=== PATIENT | female | born 1965 | race Caucasian/White ===

== ENCOUNTER → 2024-11-04 10:01 | Outpatient (REF) | payer BC, SELFPAY ==
[2024-11-04 10:54] LABS: % Basophils 0.7 % (0-2); % Eosinophils 7.5 % (0-6); % Immature Granulocytes 0.2 % (0-0.5); % Monocytes 4.7 % (1.7-9.3); % Neutrophils 52.9 % (42.2-75.2); Absolute Basophils 0.1 10^3/uL (0-0.2); Absolute Eosinophils 0.6 10^3/uL (0-0.7); Absolute Lymphocytes 2.9 10^3/uL (1.2-3.4); Absolute Monocytes 0.4 10^3/uL (0.1-0.6); Absolute Neutrophils 4.5 10^3/uL (1.4-6.5); Hematocrit 47.5 % (37.0-47.0); Hemoglobin 15.9 g/dL (12.0-16.0); Mean Corp Hgb Conc. 33.5 g/dL (33.0-37.0); Mean Corpuscular Hgb 31.3 pg (27.0-31.0); Mean Corpuscular Volume 93.5 fL (81.0-99.0); Mean Platelet Volume 10.8 fL (7.4-10.4); Nucleated Red Blood Cells % 0 %; Platelet Count 277 10^3/uL (130-400); Red Blood Cell Count 5.08 10^6/uL (4.20-5.40); Red Cell Dist. Width 12.9 % (11.5-14.5); White Blood Cell Count 8.5 10^3/uL (4.8-10.8)
[2024-11-04 11:28] LABS: Glycohemoglobin (HgbA1c) 5.3 % (4.0-5.6)
[2024-11-04 11:45] LABS: ALT (SGPT) 22 U/L (0-35); AST (SGOT) 32 U/L (14-36); Albumin 4.6 g/dl (3.5-5.0); Alkaline Phosphatase 49 U/L (38-126); Blood Urea Nitrogen 12 mg/dl (7-17); Calcium 9.9 mg/dl (8.4-10.2); Carbon Dioxide 28 mmol/L (22-30); Chloride 107 mmol/L (98-107); Glucose 82 mg/dl (70-99); HDL Cholesterol 43 mg/dl; LDL Cholesterol, Calculated 47 mg/dl; Sodium 143 mmol/L (135-145); Total Bilirubin 0.6 mg/dl (0.2-1.3); Total Cholesterol 118 mg/dl (50-199); Total Protein 7.1 g/dl (6.3-8.2); Triglyceride 144 mg/dl (10-149); Very Low Density Lipoprotein 28 mg/dl (0-30); eGFR > 60.00
[2024-11-04 12:15] LABS: TSH 0.98 uIU/ml (0.47-4.68)
== END ==
LOC: REG 10:01
PROVIDERS: ATTENDING PHYSICIAN Physician Assistant Medical
DX: R63.4 Abnormal weight loss (principal); F17.210 Nicotine dependence, cigarettes, uncomplicated
CPT/HCPCS: 36415; 80053; 80061; 83036; 84443; 85025

== ENCOUNTER → 2024-11-25 10:25 | Outpatient (REF) | payer BC, SELFPAY ==
[2024-11-25 12:13] LABS: % Basophils 0.6 % (0-2); % Eosinophils 2.1 % (0-6); % Immature Granulocytes 0.2 % (0-0.5); % Lymphocytes 38.3 % (20.5-51.1); % Monocytes 5.1 % (1.7-9.3); % Neutrophils 53.7 % (42.2-75.2); Absolute Basophils 0.1 10^3/uL (0-0.2); Absolute Eosinophils 0.2 10^3/uL (0-0.7); Absolute Lymphocytes 3.4 10^3/uL (1.2-3.4); Absolute Monocytes 0.5 10^3/uL (0.1-0.6); Absolute Neutrophils 4.8 10^3/uL (1.4-6.5); Hematocrit 43.9 % (37.0-47.0); Hemoglobin 14.9 g/dL (12.0-16.0); Mean Corp Hgb Conc. 33.9 g/dL (33.0-37.0); Mean Corpuscular Hgb 31.6 pg (27.0-31.0); Mean Corpuscular Volume 93.2 fL (81.0-99.0); Mean Platelet Volume 10.7 fL (7.4-10.4); Nucleated Red Blood Cells % 0 %; Platelet Count 292 10^3/uL (130-400); Red Blood Cell Count 4.71 10^6/uL (4.20-5.40); Red Cell Dist. Width 12.9 % (11.5-14.5); White Blood Cell Count 8.9 10^3/uL (4.8-10.8)
== END ==
LOC: REG 10:25
PROVIDERS: ATTENDING PHYSICIAN Physician Assistant Medical
DX: R71.8 Other abnormality of red blood cells (principal)
CPT/HCPCS: 36415; 85025

== ENCOUNTER 2025-06-01 09:02 | Emergency (ER) | payer SELFPAY ==
[2025-06-01 09:05] VITALS: BP 127/77
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
[2025-06-01 11:06] VITALS: BMI 24.2
[2025-06-01] MEDS: TYLENOL 650 MG PO (11:07)
[2025-06-01 13:39] VITALS: BP 124/82
== END 2025-06-01 13:41 | disposition home or self-care (01) ==
LOC: EMR 09:02
PROVIDERS: EMERGENCY PHYSICIAN Student in an Organized Health Care Education/Training Program; FAMILY PHYSICIAN Physician Assistant Medical
DX: S93.401A Sprain of unspecified ligament of right ankle, initial encounter (principal); S90.31XA Contusion of right foot, initial encounter; E78.00 Pure hypercholesterolemia, unspecified; J45.909 Unspecified asthma, uncomplicated; F17.200 Nicotine dependence, unspecified, uncomplicated; V49.40XA Driver injured in collision with unspecified motor vehicles in traffic accident, initial encounter; Y92.410 Unspecified street and highway as the place of occurrence of the external cause; W19.XXXA Unspecified fall, initial encounter
CPT/HCPCS: 99284; 70450; 72170; 73630

== ENCOUNTER 2025-06-06 11:08 | Emergency (ER) | payer BC, SELFPAY ==
[2025-06-06 11:09] VITALS: BP 141/105
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
== END 2025-06-06 13:21 | disposition home or self-care (01) ==
LOC: EMR 11:08
PROVIDERS: EMERGENCY PHYSICIAN Emergency Medicine; FAMILY PHYSICIAN Physician Assistant Medical
DX: S30.0XXA Contusion of lower back and pelvis, initial encounter (principal); W01.198A Fall on same level from slipping, tripping and stumbling with subsequent striking against other object, initial encounter; R03.0 Elevated blood-pressure reading, without diagnosis of hypertension; E78.00 Pure hypercholesterolemia, unspecified; J45.909 Unspecified asthma, uncomplicated; F31.9 Bipolar disorder, unspecified; F17.200 Nicotine dependence, unspecified, uncomplicated
CPT/HCPCS: 99283; 72110; 72220

== ENCOUNTER → 2025-06-20 10:32 | Outpatient (REF) | payer BC, SELFPAY ==
[2025-06-20 12:40] LABS: HDL Cholesterol 51 mg/dl; LDL Cholesterol, Calculated 52 mg/dl; Very Low Density Lipoprotein 21 mg/dl (0-30)
== END ==
LOC: REG 10:32
PROVIDERS: ATTENDING PHYSICIAN Physician Assistant Medical
DX: R63.4 Abnormal weight loss (principal); E78.2 Mixed hyperlipidemia
CPT/HCPCS: 36415; 80061

== ENCOUNTER → 2025-06-26 15:02 | Outpatient (REF) | payer BC, SELFPAY | LOC: MRI 3T 15:02 | PROVIDERS: ATTENDING PHYSICIAN Physician Assistant Medical | DX: R63.4 Abnormal weight loss (principal); R41.0 Disorientation, unspecified; V89.2XXD Person injured in unspecified motor-vehicle accident, traffic, subsequent encounter; M53.3 Sacrococcygeal disorders, not elsewhere classified | CPT/HCPCS: 70553; A9575 ==

== ENCOUNTER 2025-08-21 06:19 | Day surgery (SDC) | payer BC, SELFPAY ==
[2025-08-21] VITALS (7 sets, daily range): BP systolic 154–183; BP diastolic 78–105; BMI 22.6
[2025-08-21] MEDS: SUBLIMAZE 25 MCG IV ×2 (15:48→16:04)
--- NOTE | 2025-08-21 16:29 | OR.RPT ---
Operative Report
Operative Report
Patient name: Bright Wick
Date of : 1965

Date of operation: 08/21/2025
Preoperative diagnosis: Dysphonia, vocal fold lesion, Leonor's edema
Postoperative diagnosis: Dysphonia, vocal fold lesion, Leonor's edema
Operation/procedures performed: microdirect laryngoscopy with biopsy
Surgeon: Frantz Trujillo DO
Anesthesia: Gereral, 6.0 ETT
Anesthesiologist: Dr. Shepard
Surgical Indications: 59yo woman with a several decade long smoking history who presented with persistent dysphonia despite attempts at smoking cessation and reflux control, and asymmetric vocal fold edema concerning for mass. We discussed the
risks, benefits and alternatives to observation vs microdirect laryngoscopy with biopsy to establish a diagnosis. The patient elected for surgery.
Details of Procedure: The patient was met in the pre-op holding area where informed consent was reviewed and all questions answered. She was then taken back to the OR and transferred supine on the OR table and secured with a safety strap. She was
intubated orotracheally by the anesthesia team without difficulty. The table was rotated 90 degrees away from anesthesia. A surgical timeout was performed. A dental guard was placed to protect the upper dentition. A dedo laryngosope was used to
perform direct laryngoscopy. The oropharynx, hypopharynx including the post-cricoid, piriform sinuses and posterior pharyngeal shaw, and supraglottis were normal. Next, the operating microscope was brought into view and the vocal folds were brought
into focus. The larynx was abnormal: the bilateral superior and superomedial surfaces of the true vocal folds had extensive leonor's edema, left worse than right. It extended the length of each TVF and the entire width. Excisional biopsies were
taken of each side with care to protect the true vocal fold epithelium and the medial surfaces of the membranous portion of the TVFs. Each side, left and right, were sent separately. Hemostasis was achieved with afrin-soaked pledgets. The subglottis
was normal. This concluded the procedure. The laryngscope was removed carefully followed by the mouth guard. The teeth, lips and gums were not injured. This concluded the procedure. The patient was rotated back toward the anesthesia team where they
emerged safely from anesthesia and were extubated without difficulty. The patient was brought safely to the PACU in stable condition.
Complications: None immediately present
Blood loss: 5cc
Disposition: Stable to PACU followed by d/c to home
== END 2025-08-21 16:56 | disposition home or self-care (01) ==
LOC: SDS 06:19
PROVIDERS: ATTENDING PHYSICIAN Student in an Organized Health Care Education/Training Program
DX: J38.1 Polyp of vocal cord and larynx (principal); R49.0 Dysphonia; R60.9 Edema, unspecified
CPT/HCPCS: 31536; 88305